=== PATIENT | male | born 1965 | race American Indian/Alaskan Native ===

== ENCOUNTER → 2020-07-19 | Outpatient (CLI) | payer BC, OTHER ==
[2020-07-19 19:54] LABS: Hemoglobin A1C 11.5 % (4.0-6.0)
== END | disposition home or self-care (01) ==
LOC: LABWHC1 13:13
PROVIDERS: ATTEND Internal Medicine
DX: E11.9 Type 2 diabetes mellitus without complications (principal)
CPT/HCPCS: 36415; 83036

== ENCOUNTER → 2023-03-09 | Outpatient (CLI) | payer BC ==
[2023-03-09 20:44] LABS: Basophils # (A) 0.02 X 10*3/uL (0.00-0.10); Basophils % (A) 0.5 %; Eosinophils # (A) 0.25 X 10*3/uL (0.04-0.35); HCT 40.6 % (39.6-50.0); HGB 14.6 g/dL (13.0-17.0); Immature Grans, Automated 0 %; Lymphocytes # (A) 2.31 X 10*3/uL (0.90-5.00); Lymphocytes % (A) 55.1 %; MCH 29.6 pg (27.0-32.0); MCV 82.2 fL (80.0-97.0); Mean Platelet Volume 10.8 fL (9.5-12.2); Monocytes # (A) 0.24 X 10*3/uL (0.20-1.00); Monocytes % (A) 5.7 %; NRBC Per 100 WBC 0 /100 WBCS (0.0-0.0); Neutrophils # (A) 1.37 X 10*3/uL (1.80-7.70); Neutrophils % (A) 32.7 %; Platelet Count 220 X 10*3/uL (140-440); RBC 4.94 X 10*6/uL (4.40-5.60); RDW 13.3 % (11.5-14.5); WBC 4.19 X 10*3/uL (4.50-10.00)
[2023-03-09 21:11] LABS: % Iron Saturation 21.49 (15.00-50.00); ALT 19 U/L (10-49); AST 12 U/L (14-35); African American GFR (CKD) 123.1 (60.0-200.0); Albumin 4.2 g/dL (3.8-4.9); Albumin/Globulin Ratio 1.75 (1.60-3.17); Alkaline Phosphatase 56 U/L (41-126); Blood Urea Nitrogen 12.6 mg/dL (9.0-27.0); Carbon Dioxide 21.6 mmol/L (20.0-27.5); Chloride 102 mmol/L (96-109); Globulin 2.4 g/dL (1.6-3.3); Glucose 252 mg/dL (70-110); Iron 69 ug/dL (65-175); Non-African American GFR(CKD) 106.2 (60.0-200.0); Phosphorus 3.7 mg/dL (2.4-5.1); Potassium 3.5 mmol/L (3.5-5.5); Sodium 137 mmol/L (135-145); Total Iron Binding Capacity 321 ug/dL (228-460); Total Protein 6.6 g/dL (6.2-8.2); Uric Acid 2.5 mg/dL (3.7-8.7)
[2023-03-09 21:13] LABS: Erythrocyte Sedimentation Rate 6 mm/Hr (0-20)
[2023-03-09 21:17] LABS: Insulin Level 7.4 mIU/mL (3.0-25.0)
[2023-03-09 21:26] LABS: C Reactive Protein <0.30 mg/dL (0.00-0.80); Chol/HDL Ratio 3.96 Ratio; Creatine Kinase 76 U/L (35-257); LDL Cholesterol,Calculated 79.3 mg/dL (0.0-131.0)
[2023-03-09 21:42] LABS: Urine Creatinine 97.2 mg/dL (39.0-259.0)
[2023-03-09 22:18] LABS: Hepatitis A Antibody IgM Nonreactive (Nonreactive); Hepatitis B Surface Antigen Nonreactive (Nonreactive); Hepatitis C IgG Antibody Nonreactive (Nonreactive)
[2023-03-09 22:57] LABS: Hepatitis B Core IgM Nonreactive (Nonreactive)
== END | disposition home or self-care (01) ==
LOC: LABWHC1 12:23
PROVIDERS: ATTEND Internal Medicine
DX: Z00.00 Encounter for general adult medical examination without abnormal findings (principal); N40.0 Benign prostatic hyperplasia without lower urinary tract symptoms; D64.9 Anemia, unspecified; E87.8 Other disorders of electrolyte and fluid balance, not elsewhere classified; M10.9 Gout, unspecified; K75.9 Inflammatory liver disease, unspecified; E78.5 Hyperlipidemia, unspecified; E11.65 Type 2 diabetes mellitus with hyperglycemia; E05.90 Thyrotoxicosis, unspecified without thyrotoxic crisis or storm; E55.9 Vitamin D deficiency, unspecified; R80.9 Proteinuria, unspecified
CPT/HCPCS: 36415; 80053; 80061; 80074; 82043; 82306; 82550; 82570; 82728; 83036; 83525; 83540; 83550; 83735; 84100; 84153; 84439; 84443; 84550; 85025; 85652; 86140

== ENCOUNTER → 2023-11-19 | Outpatient (CLI) | payer BC ==
[2023-11-19 21:11] LABS: ALT 30 U/L (10-49); AST 13 U/L (14-35); Glucose 283 mg/dL (70-110)
== END | disposition home or self-care (01) ==
LOC: LABWHC1 13:16
PROVIDERS: ATTEND Internal Medicine
DX: E11.65 Type 2 diabetes mellitus with hyperglycemia (principal)
CPT/HCPCS: 36415; 82947; 83036; 84450; 84460

== ENCOUNTER → 2024-04-25 | Outpatient (CLI) | payer BC ==
[2024-04-25 17:49] LABS: BUN/Creat Ratio 17.75 Ratio (12.00-20.00); Blood Urea Nitrogen 14.2 mg/dL (9.0-27.0); Calcium 9.7 mg/dL (8.7-10.3); Chloride 103 mmol/L (96-109); Glucose 144 mg/dL (70-110); Potassium 3.8 mmol/L (3.5-5.5); Sodium 141 mmol/L (135-145)
== END | disposition home or self-care (01) ==
LOC: LABWHC1 12:00
PROVIDERS: ATTEND Internal Medicine
DX: I10 Essential (primary) hypertension (principal); E11.65 Type 2 diabetes mellitus with hyperglycemia; E87.8 Other disorders of electrolyte and fluid balance, not elsewhere classified
CPT/HCPCS: 36415; 80048; 83036

== ENCOUNTER → 2024-08-08 | Outpatient (CLI) | payer BC | END | disposition home or self-care (01) | LOC: LABWHC1 14:25 | PROVIDERS: ATTEND Internal Medicine | CPT/HCPCS: 36415; 82947; 83036 ==

== ENCOUNTER → 2024-12-02 | Outpatient (CLI) | payer BC ==
[2024-12-02 14:46] LABS: Creatinine,Urine Random 78.4 mg/dL; Protein/Creatinine Ratio,Urine 0.191
[2024-12-02 19:08] LABS: BUN/Creat Ratio 12.67 Ratio (12.00-20.00); Blood Urea Nitrogen 11.4 mg/dL (9.0-27.0); Chloride 104 mmol/L (96-109); Glucose 280 mg/dL (70-110); Potassium 3.6 mmol/L (3.5-5.5); Sodium 137 mmol/L (135-145)
[2024-12-02 19:09] LABS: Calcium 9.3 mg/dL (8.7-10.3); Carbon Dioxide 22.5 mmol/L (21.6-31.8)
[2024-12-02 19:11] LABS: Urine Creatinine 83.8 mg/dL (39.0-259.0)
== END | disposition home or self-care (01) ==
LOC: LABWHC1 12:00
PROVIDERS: ATTEND Internal Medicine
DX: I10 Essential (primary) hypertension (principal); E11.65 Type 2 diabetes mellitus with hyperglycemia; R80.9 Proteinuria, unspecified
CPT/HCPCS: 36415; 80048; 82043; 82570; 83036; 84156

== ENCOUNTER → 2025-04-06 | Outpatient (CLI) | payer BC ==
[2025-04-06 19:33] LABS: C-Peptide 0.54 ng/mL (0.81-3.85)
[2025-04-06 19:36] LABS: Chol/HDL Ratio 4.05 Ratio; Glucose 102 mg/dL (70-110); LDL Cholesterol,Calculated 106.2 mg/dL (0.0-131.0)
== END | disposition home or self-care (01) ==
LOC: LABWHC1 12:27
PROVIDERS: ATTEND Internal Medicine
DX: E11.65 Type 2 diabetes mellitus with hyperglycemia (principal); Z79.4 Long term (current) use of insulin
CPT/HCPCS: 36415; 80061; 82947; 83036; 84681; 86337